=== PATIENT | male | born 2000 | race Caucasian/White ===

== ENCOUNTER → 2021-11-14 13:11 | Outpatient (BNVA) | payer MEDICAID, SELFPAY | PROVIDERS: PCP Registered Nurse; Referring Provider Registered Nurse; Visit Provider Internal Medicine | DX: R07.2 Precordial pain (principal) | CPT/HCPCS: 93005; 99202 ==

== ENCOUNTER → 2022-01-24 10:37 | Outpatient (REF) | payer MEDICAID, SELFPAY ==
--- NOTE | 2022-01-24 10:40 | CA_ITS ---
Transthoracic Echocardiogram Patient (Last, First, Middle): Bharath Griffin M Gender: Male Date of : 2000 Age: 21 Procedure Date: 01/24/2022 Procedure Type: Transthoracic Echocardiogram Location: OP Height: 172.72 cm Weight: 104.33 kg BSA: 2.17 m2 Heart Rate: bpm BP: 110 / 62 mmHg Store Detective: [id number] Referring MD: Pedrito Palacios MD Interactive Account Manager: Wili Farrell MD Symptoms: R07.2 - Precordial pain Study Quality: Good ECG Rhythm: Sinus Conclusions: - Normal study Findings Left Ventricle Normal left ventricular size, thickness, and systolic function. The visually estimated ejection fraction is between 60-65%. Diastolic function is normal for age. measured longitudinal endocardial global strain was -18%, within normal limits Right Ventricle Normal right ventricular cavity size and systolic function. Atria Both atria are normal in size. There is no evidence of interatrial shunt. Aortic Valve Normal aortic valve structure and function. There is no aortic valve stenosis. There is no aortic valve regurgitation. Mitral Valve Normal mitral valve structure and function. There is no mitral valve regurgitation. There is no mitral valve stenosis. Pulmonic Valve The pulmonic valve is likely normal. Tricuspid Valve Normal tricuspid valve structure. There is trace tricuspid valve regurgitation. The right ventricular systolic pressure is normal. The right ventricular systolic pressure is 25 mmHg. Normal right atrial pressure. There is no evidence of pulmonary hypertension. Great Vessels All visible segments of the aorta are normal in size. The pulmonary artery was not well visualized. Venous The inferior vena cava is normal in size and collapses greater than 50% with inspiration. Pericardium/Pleural There is no evidence of pericardial effusion. Prior Study Comparison No prior study available for comparison. Measurements M-Mode Liner Measurements Normals - Women/Men LVIDd: 5.82 3.9-5.3/4.2-5.9 cm LVIDd Index: 2.68 1.9-3.2 cm/m2 LVIDs: 3.62 2.0-3.8 cm M-Mode Volumes LV EDV: 168.00 LV ESV: 55.20 2D Linear Measurements IVSd: 1.06 0.6-0.9/0.6-1.0 cm LVIDd: 5.58 3.9-5.3/4.2-5.9 cm LVIDd Index: 2.57 2.4-3.2/2.2-3.1 cm/m2 LVIDs: 3.59 2.0-3.6 cm LVPWd: 0.98 0.7-1.1 cm LA Diam: 3.40 2.7-3.8/3.0-4.0 cm LAIDs Index: 1.57 1.5-2.3 cm/m2 LV Mass: 280.18 67-162/88-224 g LV Mass Index: 129.12 43-95/49-115 g/m2 LVOT Diam: 2.20 3.0+(-)1.3 cm 2D Systolic Function EF 4C: 55.40 >55% EF 2C: 58.10 >55% M-Mode Systolic Function FS: 37.80 27-47/25-43% LVEF: 67.10 >55% Mitral Valve MV Pk E: 0.84 MV PK A: 0.37 MV Decel Time: 251.00 E/A: 2.30 E'Lateral: 13.90 E'Medial: 9.03 E/E' Med: 9.30 E/E' Lat: 6.10 PHT: 74.00 MVA PHT: 2.97 Decel [place]: 3.36 Aortic Valve AoV Pk Bret: 1.36 AoV Pk Grad: 7.00 LVOT LVOT Pk Bret: 1.02 LVOT Mn Bret: 0.70 LVOT VTI: 0.22 LVOT Pk Grad: 4.00 LVOT Mn Grad: 2.00 LVOT Diam: 2.20 LVOT Area: 3.80 Diastolic Function MV Pk E: 0.84 MV Pk A: 0.37 E/A: 2.30 E'Medial: 9.03 E/E' Med: 9.30 E' Laterial: 13.90 E/E' Lat: 6.10 Right Ventricle TAPSE (mm): 2.49 TVS' Bret: 17.40 Tricuspid Valve TR Pk Bret: 232.00 TR Pk Grad: 22.00 RA Press: 3.00 RVSP: 25.00 Great Vessels Aorta Sinus of Valsalva: 3.34 2.0-3.5 cm Ao Asc: 3.50 2.1-3.4 cm Updated in Other Vendor System with Status of Final Wili Farrell MD electronically signed on 01/26/2022 5:05:33 PM with status of Final
== END ==
LOC: HO.CARD 10:37
PROVIDERS: PCP Registered Nurse; Visit Provider Internal Medicine
DX: R07.2 Precordial pain (principal)
CPT/HCPCS: 93306